=== PATIENT | male | born 1945 | race Asian ===

== ENCOUNTER 2024-07-02 20:14 | Observation (INO) | payer OTHER ==
[2024-07-02 22:50] LABS: BASO % 0.2 % (0-2.0); EOS % 0.7 % (0-4.5); HEMATOCRIT 31.5 % (35.4-49); LYMPH % 11.7 % (8-40); MCH 30.6 pg (25.7-33.7); MCHC 34.9 g/dl (32.0-35.9); MEAN CELL VOLUME 87.5 fl (80-96); MEAN PLT VOLUME 7.1 fl (7.5-11.1); MONO % 4.3 % (3.8-10.2); NEUT % 83.1 % (42.8-82.8); PLATELET COUNT 152 10^3/uL (134-434); RDW 13.4 % (11.9-15.9); WHITE BLOOD COUNT 10.2 K/mm3 (4.0-10.0)
[2024-07-02] MEDS: FAMOTIDINE 20 MG TABLET PO ONE (22:54)
[2024-07-02] MEDS: ACETAMINOPHEN 325 MG TABLET (FP) PO ONE (22:54)
[2024-07-02] MEDS: MAG HYDROX/AL HYDROX/SIMETH 30 ML UNIT-DOSE CUP PO ONE (22:54)
[2024-07-02] MEDS ORDERED: FAMOTIDINE 20 MG TABLET ONE (22:55)
[2024-07-02] MEDS ORDERED: MAG HYDROX/AL HYDROX/SIMETH 30 ML UNIT-DOSE CUP ONE (22:55)
[2024-07-02] MEDS ORDERED: ACETAMINOPHEN 325 MG TABLET (FP) ONE (22:55)
[2024-07-02 22:59] LABS: POTASSIUM 5.5 mmol/L (3.5-5.1)
[2024-07-02 23:01] LABS: CALCIUM 8.3 mg/dL (8.5-10.1)
[2024-07-02 23:02] LABS: ALBUMIN 3.2 g/dl (3.4-5.0); BLOOD UREA NITROGEN 28.6 mg/dL (7-18)
[2024-07-02 23:05] LABS: CREATININE 1.5 mg/dL (0.55-1.3)
[2024-07-02 23:07] LABS: BILIRUBIN,TOTAL 0.4 mg/dL (0.2-1); TOT PROT 5.7 g/dl (6.4-8.2)
[2024-07-03] MEDS: SODIUM CHLORIDE 500 ML IV STA (01:39)
[2024-07-03] MEDS: INSULIN (LEVEMIR) 100 UNITS/ML UNITS SQ ONE (01:39)
[2024-07-03] MEDS: INSULIN (NOVOLOG) ASPART 100 UNITS/ML 10ML VIAL SQ ONE (02:16)
[2024-07-03] MEDS: SODIUM CHLORIDE 1,000 ML IV SCH (03:15)
[2024-07-03] MEDS: INSULIN ASPART SLIDING SCALE (NOVOLOG) 1 VIAL SQ SCH (07:05)
[2024-07-03 07:28] LABS: POTASSIUM 4.1 mmol/L (3.5-5.1)
[2024-07-03 07:35] LABS: CALCIUM 8.4 mg/dL (8.5-10.1)
[2024-07-03 07:36] LABS: BLOOD UREA NITROGEN 26.6 mg/dL (7-18); MAGNESIUM 2.7 mg/dL (1.8-2.4)
[2024-07-03 07:39] LABS: CREATININE 1.3 mg/dL (0.55-1.3); PHOSPHOROUS 3.3 mg/dL (2.5-4.9)
[2024-07-03] MEDS ORDERED: metoPROLOL SUCCINATE 25 MG TAB.SR.24H (FP) PO ONE (09:07)
[2024-07-03] MEDS ORDERED: ASPIRIN 81 MG CHEWABLE TABLETS ONE (09:07)
[2024-07-03] MEDS ORDERED: CLOPIDOGREL BISULFATE 75 MG TABLET (FP) ONE (09:07)
[2024-07-03] MEDS ORDERED: FERROUS SO4 325 MG TABLET (FP) ONE (09:08)
[2024-07-03] MEDS ORDERED: ENOXAPARIN NA (PORCINE) 40 MG/0.4 ML DISP.SYRIN SQ ONE (09:08)
[2024-07-03] MEDS ORDERED: PANTOPRAZOLE 40 MG TABLET PO PRN (09:14)
[2024-07-03] MEDS ORDERED: ASCORBIC ACID 500 MG TABLET (FP) ONE (09:15)
[2024-07-03] MEDS: ENOXAPARIN NA (PORCINE) 40 MG/0.4 ML DISP.SYRIN SQ SCH (09:31)
[2024-07-03] MEDS: ASPIRIN 81 MG CHEWABLE TABLETS PO SCH (09:31)
[2024-07-03] MEDS: CLOPIDOGREL BISULFATE 75 MG TABLET (FP) PO SCH (09:31)
[2024-07-03] MEDS: metoPROLOL SUCCINATE 25 MG TAB.SR.24H (FP) PO SCH (09:31)
[2024-07-03] MEDS: ASCORBIC ACID 500 MG TABLET (FP) PO SCH (09:31)
[2024-07-03] MEDS: VITAMIN B COMPLEX W/C COMBO TABLET (FP) PO SCH (09:31)
[2024-07-03] MEDS: FERROUS SO4 325 MG TABLET (FP) PO SCH (09:31)
[2024-07-03] MEDS ORDERED: ISOSORBIDE MONONITRATE 30 MG TAB.SR.24H (FP) PO ONE (11:24)
[2024-07-03] MEDS: ISOSORBIDE MONONITRATE 30 MG TAB.SR.24H (FP) PO SCH (11:29)
[2024-07-03] MEDS ORDERED: INSULIN ASPART SLIDING SCALE (NOVOLOG) 1 VIAL SQ ONE (11:37)
[2024-07-03] MEDS: ACETAMINOPHEN 500 MG TABLET (FP) PO ONE (11:41)
[2024-07-03 18:39] VITALS: BMI 23.2
[2024-07-03] MEDS: ATORVASTATIN CA 40 MG TABLET (FP) PO SCH (22:37)
[2024-07-03] MEDS: GABAPENTIN 100 MG CAPSULE PO SCH (22:38)
[2024-07-04 07:03] LABS: POTASSIUM 4.7 mmol/L (3.5-5.1)
[2024-07-04 07:07] LABS: ALBUMIN 2.9 g/dl (3.4-5.0); BLOOD UREA NITROGEN 27.8 mg/dL (7-18); CALCIUM 8.6 mg/dL (8.5-10.1); MAGNESIUM 2.5 mg/dL (1.8-2.4)
[2024-07-04 07:10] LABS: CREATININE 1.4 mg/dL (0.55-1.3); PHOSPHOROUS 3.9 mg/dL (2.5-4.9)
[2024-07-04 07:12] LABS: BILIRUBIN,TOTAL 0.5 mg/dL (0.2-1); TOT PROT 5.1 g/dl (6.4-8.2)
[2024-07-04 07:33] LABS: INR 0.95 (0.83-1.09); PROTHROMBIN TIME (PATIENT) 10.9 SEC (9.7-13.0)
[2024-07-04 07:35] LABS: BASO % 0.2 % (0-2.0); HEMATOCRIT 29.7 % (35.4-49); HEMOGLOBIN 10.5 GM/dL (11.7-16.9); LYMPH % 27.6 % (8-40); MCHC 35.5 g/dl (32.0-35.9); MEAN CELL VOLUME 87.3 fl (80-96); MEAN PLT VOLUME 7.5 fl (7.5-11.1); MONO % 6.1 % (3.8-10.2); NEUT % 62.1 % (42.8-82.8); PLATELET COUNT 127 10^3/uL (134-434); WHITE BLOOD COUNT 6.1 K/mm3 (4.0-10.0)
[2024-07-04] MEDS ORDERED: REGADENOSON 0.4 MG/5 ML PRE-FILLED SYRINGE IVPUSH ONE ×2 (09:23→09:45)
[2024-07-04] MEDS: REGADENOSON 0.4 MG/5 ML PRE-FILLED SYRINGE IVPUSH ONE (11:22)
[2024-07-04 15:50] VITALS: BP 139/64; PULSE 72; RESP 18; TEMP 98.1
== END 2024-07-04 18:08 | disposition home or self-care (01) ==
LOC: JER 20:14 → JERBED 23:30 → UNDOADMOB 23:30 → INTOOBSV 07-03 09:13 → OBSVTOIN 07-03 09:13 → J4W 07-03 15:16 → JERBED 07-03 15:16 → J4W 07-04 10:19 → JERBED 07-04 10:19
PROVIDERS: ADMIT Internal Medicine; ATTEND Internal Medicine
PROC: 3E023GC Introduction of Other Therapeutic Substance into Muscle, Percutaneous Approach (ICD-10-PCS; principal; 2024-07-04)
PROC: 3E013VG Introduction of Insulin into Subcutaneous Tissue, Percutaneous Approach (ICD-10-PCS; 2024-07-04)
PROC: 3E033GC Introduction of Other Therapeutic Substance into Peripheral Vein, Percutaneous Approach (ICD-10-PCS; 2024-07-04)
PROC: 3E0337Z Introduction of Electrolytic and Water Balance Substance into Peripheral Vein, Percutaneous Approach (ICD-10-PCS; 2024-07-04)
DX: R07.9 Chest pain, unspecified (principal); S00.01XA Abrasion of scalp, initial encounter; S20.319A Abrasion of unspecified front wall of thorax, initial encounter; Y07.02 Wife, perpetrator of maltreatment and neglect; X58.XXXA Exposure to other specified factors, initial encounter; Y93.89 Activity, other specified; Y92.009 Unspecified place in unspecified non-institutional (private) residence as the place of occurrence of the external cause; Z63.79 Other stressful life events affecting family and household; T76.11XA Adult physical abuse, suspected, initial encounter; I73.9 Peripheral vascular disease, unspecified; I25.10 Atherosclerotic heart disease of native coronary artery without angina pectoris; I10 Essential (primary) hypertension; N17.9 Acute kidney failure, unspecified; Z95.5 Presence of coronary angioplasty implant and graft; E11.9 Type 2 diabetes mellitus without complications; E87.5 Hyperkalemia
CPT/HCPCS: 36415; 71045-TC-FY; 78452-TC; 80048; 80053; 82962; 83036; 83735; 84100; 84484; 85025; 85610; 93005; 93010; 93017; 93306-TC; 96361; 96372; 96374; 97116-GP; 97161-GP; 99285-25; A9502; G0378; J2785